=== PATIENT | female | born 1955 | race Caucasian/White ===

== ENCOUNTER 2017-11-08 17:01 | Emergency (ER) | payer SELFPAY ==
[2017-11-08] MEDS ORDERED: HYDROcodone/Acetaminophen 10/325 mg Tablet ONE (17:21)
[2017-11-08] MEDS ORDERED: Ketorolac Tromethamine 30 MG/ML VIAL ONE (17:22)
[2017-11-08] MEDS ORDERED: Adacel (T-DAP) 0.5 ML VIAL ONE (17:52)
--- NOTE | 2017-11-08 18:08 | RAD ---
FRONTAL AND LATERAL IMAGING RIGHT FOREARM 11/08/17 COMPARISON: None. HISTORY: Fall, trauma, pain. FINDINGS: No displaced fracture or evidence of dislocation is seen. There is degenerative change at the level o f the right elbow and lateral aspect of the right wrist joint. IMPRESSION: No displaced fracture or dislocation noted. POS: [facility]
--- NOTE | 2017-11-08 18:20 | RAD ---
THREE VIEWS OF THE RIGHT SHOULDER 11/08/17 COMPARISON: None. HISTORY: Fall, trauma, pain. FINDINGS: There is an obliquely oriented laterally displaced humeral head fracture involving the greater tubero sity. There is a degree of impaction as well. There is no widening of the AC or the CC interspace. No evidence for dislocation of the right glenohumeral joint. IMPRESSION: Acute displaced obliquely oriented fracture of the right humeral head. POS: [facility]
== END 2017-11-08 18:35 | disposition home or self-care (01) ==
LOC: NAV ERS 17:01
DX: S42.331A Displaced oblique fracture of shaft of humerus, right arm, initial encounter for closed fracture (principal); R03.0 Elevated blood-pressure reading, without diagnosis of hypertension; M06.9 Rheumatoid arthritis, unspecified; Z79.899 Other long term (current) drug therapy; W01.0XXA Fall on same level from slipping, tripping and stumbling without subsequent striking against object, initial encounter
CPT/HCPCS: 90471; 90715; 96372; J1885